=== PATIENT | male | born 1990 | race Hispanic/Latino ===

== ENCOUNTER 2017-10-15 13:00 | Emergency (ER) | payer OTHER, BC ==
[2017-10-15 13:06] VITALS: BMI 29.5
[2017-10-15 13:25] VITALS: RESP 18; TEMP 98
--- NOTE | 2017-10-15 13:31 | ED PDOC ---
Arrival/HPI - General Chief Complaint: Body Fluid Exposure Time Seen by Provider: 10/15/17 13:30 Historian: Patient - History of Present Illness Narrative History of Present Illness (Text): 10/15/17 13:30 Patient is a 27 year old male who presents to the Emergency department due to being exposed to a patients blood. 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 He subsequently flushed his eye with saline and denies any current symptoms. Time/Duration: Prior to Arrival Symptom Course: Unchanged Context: Work Past Medical History - Provider Review Nursing Documentation Reviewed: Yes - Psychiatric Hx Substance Use: No - Surgical History Hx Musculoskeletal Surgery: Yes (ACL repair) - Anesthesia Hx Anesthesia: Yes Hx Anesthesia Reactions: No Hx Malignant Hyperthermia: No Family/Social History - Physician Review Nursing Documentation Reviewed: Yes Family/Social History: No Known Family HX Smoking Status: n Hx Alcohol Use: No Hx Substance Use: No Allergies/Home Meds Allergies/Adverse Reactions: Allergies Sulfa (Sulfonamide Antibiotics) Allergy (Verified 10/15/17 13:06) VOMITING Home Medications: Home Meds Medication Instructions Recorded Confirmed Cetirizine HCl [Zyrtec Allergy] 10 mg PO DAILY 10/15/17 10/15/17 Review of Systems - Physician Review All systems were reviewed & negative as marked: Yes - Review of Systems Constitutional: absent: Fevers Respiratory: absent: SOB Physical Exam - Physical Exam Narrative Physical Exam (Text): 10/15/17 13:32 Constitutional: No acute distress. Head: Normocephalic. Atraumatic. Eyes: PERRL. No blood. ENT: Moist mucous membranes. Neck: Supple. Cardiovascular: Regular rate. Chest: No tenderness. Respiratory: Clear to auscultation bilaterally. GI: Soft. Nontender. Nondistended. Back: No CVA tenderness. Musculoskeletal: No tenderness or swelling of extremities. Skin: No rash. Neurologic: Alert, no focal deficit. Vital Signs Temp Pulse Resp BP Pulse Ox 10/15/17 13:01 98 F 89 18 139/83 98 Medical Decision Making ED Course and Treatment: 10/15/17 13:32 Impression: Patient presents to the Emergency department due to being exposed to another patients blood while working. Differential Diagnosis included but are not limited to: Exposure to blood. Plan: --lab work --Isentress --Truvada Progress Notes: Prescribed PEP for 28 days. Follow up with Employee Health tomorrow. Source patient in ED, agreed to HIV test. Eye irrigated with 1 L NS. - Lab Interpretations Lab Results: 10/15/17 14:00 10/15/17 14:00 Lab Results 10/15/17 14:00: Sodium 138, Potassium 4.0, Chloride 98, Carbon Dioxide 31, Anion Gap 14, BUN 15, Creatinine 1.0, Est GFR ( Amer) > 60, Est GFR (Non- Af Amer) > 60, Random Glucose 91, Calcium 9.6, Total Bilirubin 0.4, AST 24, ALT 42, Alkaline Phosphatase 56, Total Protein 7.2, Albumin 4.5, Globulin 2.7, Albumin/Globulin Ratio 1.6, Amylase 75 10/15/17 14:00: WBC 10.3, RBC 5.31, Hgb 16.3, Hct 46.5, MCV 87.6, MCH 30.7, MCHC 35.1, RDW 12.6, Plt Count 309, MPV 10.0, Gran % 67.1, Lymph % (Auto) 24.3, Sutton % (Auto) 6.4 H, Eos % (Auto) 1.9, Baso % (Auto) 0.3, Gran # 6.91 H, Lymph # (Auto) 2.5, Sutton # (Auto) 0.7 H, Eos # (Auto) 0.2, Baso # (Auto) 0.03 - Medication Orders Current Medication Orders: Discontinued Medications Emtricitabine/Tenofovir (Truvada 200 Mg-300 Mg) 1 tab PO STAT STA PRN Reason: Protocol Stop: 10/15/17 13:33 Last Admin: 10/15/17 14:42 Dose: 1 tab Raltegravir (Isentress) 400 mg PO STAT STA PRN Reason: Protocol Stop: 10/15/17 13:33 Last Admin: 10/15/17 14:42 Dose: 400 mg - Scribe Statement The provider has reviewed the documentation as recorded by the Shengibjacqueline Mehta Provider Scribe Attestation: All medical record entries made by the Scribe were at my direction and personally dictated by me. I have reviewed the chart and agree that the record accurately reflects my personal performance of the history, physical exam, medical decision making, and the department course for this patient. I have also personally directed, reviewed, and agree with the discharge instructions and disposition. Disposition/Present on Arrival - Present on Arrival Any Indicators Present on Arrival: No History of DVT/PE: No History of Uncontrolled Diabetes: No Urinary Catheter: No History of Decub. Ulcer: No History Surgical Site Infection Following: None - Disposition Have Diagnosis and Disposition been Completed?: Yes Diagnosis: Exposure to blood Disposition: HOME/ ROUTINE Disposition Time: 14:50 Patient Plan: Discharge Patient Problems: Current Active Problems Problem Status Onset Exposure to blood Acute Condition: STABLE Discharge Instructions (ExitCare): Blood or Body Fluid Exposure Additional Instructions: [facility] Employee Regarding your Work Related Injury, you are instructed to do all of the following by next day: 1. Notify [facility] Employee Health Department of the sustained injury and arrange for any follow-up appointments if needed during the next business day. If the office is closed or no answer is received, please leave a detailed voice message. Message should include your full name, department and video manager, date of injury, date of ED visit if applicable. Employee Health can be reached at [phone]. 2. If there is time lost, notify [facility] Human Resources Department of the work related injury the next business day at [phone]. Prescriptions: Emtricitabine/Tenofovir Diso [Truvada 200 MG-300 MG] 1 tab PO DAILY #28 tab Raltegravir Potassium [Isentress] 1 tab PO BID #56 tab Forms: Not iT ([employer])
[2017-10-15] MEDS ORDERED: Emtricitabine-Tenofovir 200 mg-300 mg Tab PO STA (13:32)
[2017-10-15 14:17] LABS: BASO # 0.03 K/mm3 (0.0-2.0); BASO % 0.3 % (0.0-3.0); EOS # 0.2 (0.0-0.7); EOS % 1.9 % (1.5-5.0); GRAN # 6.91 (1.4-6.5); GRAN % 67.1 % (50.0-68.0); HEMOGLOBIN 16.3 g/dL (14.0-18.0); LYMPH # 2.5 (1.2-3.4); LYMPH % 24.3 % (22.0-35.0); MEAN CELL VOLUME 87.6 fl (80.0-105.0); MEAN CORPUSCULAR HEMOGLOBIN 30.7 pg (25.0-35.0); MEAN CORPUSCULAR HGB CONC 35.1 g/dl (31.0-37.0); MONO # 0.7 (0.1-0.6); MONO % 6.4 % (1.0-6.0); RBC 5.31 10^6/uL (3.5-6.1); RED CELL DISTRIBUTION WIDTH 12.6 % (11.5-14.5); WHITE BLOOD COUNT 10.3 10^3/ul (4.5-11.0)
[2017-10-15 14:23] LABS: ALB/GLOB RATIO 1.6 (1.1-1.8); ALBUMIN 4.5 g/dL (3.0-4.8); ALT/SGPT 42 U/L (7-56); AMYLASE 75 U/L (35-125); AST/SGOT 24 U/L (17-59); BLOOD UREA NITROGEN 15 mg/dL (7-21); CALCIUM 9.6 mg/dL (8.4-10.5); GFR AFRICAN-AMERICAN > 60; GFR NON-AFRICAN AMERICAN > 60
[2017-10-15 15:16] VITALS: BP 125/80; PULSE 80; O2SAT 99
[2017-10-15 21:07] LABS: HEPATITIS B SURFACE AG Negative (NEGATIVE)
[2017-10-15 21:13] LABS: HEPATITIS A IGM NEGATIVE (NEGATIVE); HEPATITIS B CORE AB NEGATIVE (NEGATIVE)
[2017-10-15 21:24] LABS: HEPATITIS C ANTIBODY NEGATIVE (NEGATIVE)
== END 2017-10-15 15:15 | disposition home or self-care (01) ==
LOC: ED 13:00
DX: Z77.21 Contact with and (suspected) exposure to potentially hazardous body fluids (principal)